=== PATIENT | female | born 1955 | race African-American/Black ===

== ENCOUNTER 2019-01-08 01:09 | Emergency (ER) | payer MEDICAID ==
[~2019-01-08] VITALS: Ht 157.5 cm; Wt 47.6 kg
--- NOTE | 2019-01-08 01:21 | NUR ---
BIBRA. C/O "HAVING SOB BECAUSE OF THE SMOKE. ALSO HAVING BLURRY VISION" AOX4. VSS AT THIS TIME.
[2019-01-08 02:21] LABS: BASOPHILS # (AUTO) 0.1 /CMM (0.0-0.2); EOSINOPHILS % (AUTO) 2.6 % (0.0-6.0); HEMATOCRIT 42 % (33-45); HEMOGLOBIN 13.5 g/dL (11.5-14.8); LYMPHOCYTES # (AUTO) 1.3 /CMM (0.8-4.8); LYMPHOCYTES % (AUTO) 35.2 % (20.0-44.0); MEAN CORPUSCULAR HGB CONC 33 g/dl (31.0-36.0); MEAN CORPUSCULAR VOLUME 95 fL (82-100); MONOCYTES # (AUTO) 0.3 /CMM (0.1-1.30); MONOCYTES % (AUTO) 7.6 % (2.0-12.0); NEUTROPHILS # (AUTO) 1.9 /CMM (1.8-8.9); NEUTROPHILS % (AUTO) 52.6 % (43.0-81.0); PLATELET COUNT (AUTO) 241 /CMM (150-450); RED BLOOD CELL COUNT(AUTO) 4.39 MIL/uL (4.0-5.2); WHITE BLOOD COUNT (AUTO) 3.7 K/uL (4.3-11.0)
[2019-01-08 02:27] LABS: APPEARANCE,URINE Clear (CLEAR); BILIRUBIN,URINE Negative (NEGATIVE); BLOOD, URINE Negative Ery/uL (NEGATIVE); COLOR,URINE Yellow (YELLOW); KETONES,URINE Trace (NEGATIVE); LEUKOCYTE ESTERASE ,URINE Small (NEGATIVE); NITRITE, URINE Negative (NEGATIVE); PROTEIN,URINE Negative (NEGATIVE); UGLUCOSE Negative (NEGATIVE); UROBILINOGEN,URINE 0.2 EU/dL (0.2)
[2019-01-08 02:31] LABS: POTASSIUM 4.1 mmol/L (3.5-5.1)
[2019-01-08 02:45] LABS: THYROID STIMULATING HORMONE 11.514 uIU/mL (0.358-3.74)
[2019-01-08 03:05] LABS: BACTERIA,URINE Few /HPF (None Seen); RBC,URINE 0-2 /HPF (0-2); SQUAMOUS EPITHELIAL CELL,UR Rare /HPF (None Seen)
--- NOTE | 2019-01-08 03:18 | NUR ---
PATIENT DISCHARGED. PT OK TO SLEEP IN BED UNTIL MORNING. NO COMPLAINTS AT THIS TIME. AOX4. AMBULATORY.
[2019-01-08 07:07] VITALS: BP 121/71
== END 2019-01-08 07:07 | disposition home or self-care (01) ==
LOC: ER 01:10
DX: E03.9 Hypothyroidism, unspecified (principal); E06.3 Autoimmune thyroiditis; M19.90 Unspecified osteoarthritis, unspecified site; Z88.6 Allergy status to analgesic agent; Z88.5 Allergy status to narcotic agent
CPT/HCPCS: 36415; 71045-TC; 80048-TC; 81000-TC; 84439-TC; 84443-TC; 84481; 85025-TC

== ENCOUNTER 2019-02-16 23:39 | Emergency (ER) | payer MEDICAID ==
[~2019-02-16] VITALS: Ht 157.5 cm; Wt 47.6 kg
--- NOTE | 2019-02-16 23:42 | NUR ---
PT BIB EMS C/O DIZZINESS. DX'D WITH PNA ON Z-PACK. PT AOX4. NAD NOTED. RESP EVEN AND UNLABORED. PT ON MONITOR IN BED 3. WILL CONTINUE TO MONITOR.
[2019-02-17] MEDS ORDERED: IV NS 0.9% 1,000 ML BAG IV ONE
--- NOTE | 2019-02-17 00:05 | NUR ---
BLOOD DRAWN AND GIVEN TO LAB
--- NOTE | 2019-02-17 00:09 | NUR ---
TECH AT BEDSIDE FOR EKG
[2019-02-17 00:12] LABS: BASOPHILS # (AUTO) 0.1 /CMM (0.0-0.2); BASOPHILS % (AUTO) 1.2 % (0.0-2.0); EOSINOPHILS % (AUTO) 1.2 % (0.0-6.0); HEMATOCRIT 44 % (33-45); HEMOGLOBIN 14.3 g/dL (11.5-14.8); LYMPHOCYTES # (AUTO) 1.5 /CMM (0.8-4.8); LYMPHOCYTES % (AUTO) 34.4 % (20.0-44.0); MEAN CORPUSCULAR HGB CONC 33 g/dl (31.0-36.0); MEAN CORPUSCULAR VOLUME 94 fL (82-100); MONOCYTES # (AUTO) 0.4 /CMM (0.1-1.30); NEUTROPHILS # (AUTO) 2.4 /CMM (1.8-8.9); NEUTROPHILS % (AUTO) 55.2 % (43.0-81.0); PLATELET COUNT (AUTO) 278 /CMM (150-450); RED BLOOD CELL COUNT(AUTO) 4.66 MIL/uL (4.0-5.2); WHITE BLOOD COUNT (AUTO) 4.4 K/uL (4.3-11.0)
--- NOTE | 2019-02-17 00:14 | NUR ---
RADIOLOGY AT BEDSIDE FOR XRAY
[2019-02-17 00:21] LABS: CALCIUM, SERUM 9.3 mg/dL (8.5-10.1); CARBON DIOXIDE 28 mmol/L (21-32); CHLORIDE 107 mmol/L (98-107); CREATININE 0.9 mg/dL (0.6-1.3); GLUCOSE 109 mg/dL (74-106); POTASSIUM 3.8 mmol/L (3.5-5.1); SODIUM SERUM 142 mmol/L (136-145); UREA NITROGEN, BLOOD 12 mg/dL (7-18)
[2019-02-17 00:35] LABS: ALANINE AMINOTRANSFERASE 23 U/L (12-78); ALBUMIN 3.5 g/dL (3.4-5.0); ALKALINE PHOSPHATASE 83 U/L (46-116); ASPARTATE AMINOTRANSFERASE 19 U/L (15-37); B-TYPE NATRIURETIC PEPTIDE 52 PG/ML (0-125); BILIRUBIN,DIRECT 0.1 mg/dL (0.0-0.2); BILIRUBIN,TOTAL 0.3 mg/dL (0.2-1.0); TOTAL PROTEIN, SERUM 7.1 g/dL (6.4-8.2)
[2019-02-17 02:09] VITALS: BP 137/87
--- NOTE | 2019-02-17 02:16 | NUR ---
Patient is resting comfortably in bed with eyes closed. Easily aroused. VSS
--- NOTE | 2019-02-17 02:43 | NUR ---
PT CLAMPED IV FLUIDS. PT WAS TOLD TO NOT CLAMP THE IV FLUIDS.
--- NOTE | 2019-02-17 03:03 | NUR ---
PT CLAMPED IV FLUIDS AGAIN. PT WAS TOLD TO NOT CLAMP THE IV FLUIDS.
--- NOTE | 2019-02-17 04:31 | NUR ---
PT WAS GIVEN DISCHARGE PAPERWORK AND REFUSES TO SIGN. PT WAS VERBALLY THREATENING WHEN I TRIED TO REMOVE THE IV ACCESS. CALLED SECURITY TO ESCORT PATIENT.
--- NOTE | 2019-02-17 05:38 | NUR ---
IV removed. Catheter intact and site benign. Pressure and 4x4 applied to site. No bleeding noted.Patient discharged to home in stable condition. Written and verbal after care instructions given. Patient verbalizes understanding of instruction.
== END 2019-02-17 05:40 | disposition home or self-care (01) ==
LOC: ER 23:46
DX: E86.0 Dehydration (principal); R42 Dizziness and giddiness; M19.90 Unspecified osteoarthritis, unspecified site; Z88.6 Allergy status to analgesic agent; Z88.5 Allergy status to narcotic agent
CPT/HCPCS: 36415; 71045; 80048; 80076; 83880; 84145; 84484; 85025; 87040 ×2; 93005; 96360; 99284; J7030

== ENCOUNTER 2019-04-11 12:29 | Emergency (ER) | payer OTHER, MEDICAID ==
[~2019-04-11] VITALS: Ht 157.5 cm; Wt 52.2 kg
--- NOTE | 2019-04-11 12:35 | NUR ---
Pt [id number], and lapd, in custody,for OTB c/o lower back pain, 8 ps ambulatory on scene, BS 136. Pt aaox4, vss, breathing even and unlabored on room air w/ nad noted. Pt connected to the monitor and pox. Officer Patience at bedside. ID # [id number]
[2019-04-11] MEDS ORDERED: IBUPROFEN 600 MG TABLET PO ONE ×2 (12:51→13:00)
--- NOTE | 2019-04-11 13:00 | NUR ---
PT ASKED TO TAKE MOTRIN AFTER LUNCH.
--- NOTE | 2019-04-11 15:19 | NUR ---
Patient discharged to pd in stable condition. Written and verbal after care instructions given. Patient verbalizes understanding of instruction.
[2019-04-11 15:20] VITALS: BP 119/84
== END 2019-04-11 15:20 ==
LOC: ER 12:31
DX: S30.0XXA Contusion of lower back and pelvis, initial encounter (principal); M19.90 Unspecified osteoarthritis, unspecified site; Z88.6 Allergy status to analgesic agent; Z88.5 Allergy status to narcotic agent; Y08.89XA Assault by other specified means, initial encounter; Y93.89 Activity, other specified; Y92.89 Other specified places as the place of occurrence of the external cause; Y99.8 Other external cause status
CPT/HCPCS: 72100-TC

== ENCOUNTER 2024-05-06 02:22 | Emergency (ER) | payer MEDICARE, OTHER ==
[~2024-05-06] VITALS: Ht 157.5 cm; Wt 50.8 kg
[2024-05-06 02:53] VITALS: TEMP 98.4
[2024-05-06] MEDS: IBUPROFEN 400 MG TABLET PO ONE (03:00)
[2024-05-06] MEDS ORDERED: IBUPROFEN 400 MG TABLET ONE (03:38)
[2024-05-06 06:35] VITALS: BP 144/89; O2SAT 97
== END 2024-05-06 06:35 | disposition home or self-care (01) ==
LOC: ER 02:34
DX: S39.012A Strain of muscle, fascia and tendon of lower back, initial encounter (principal); E06.3 Autoimmune thyroiditis; Z88.5 Allergy status to narcotic agent; Y08.89XA Assault by other specified means, initial encounter; Y93.89 Activity, other specified; Y92.098 Other place in other non-institutional residence as the place of occurrence of the external cause; Y99.8 Other external cause status
CPT/HCPCS: 72131-TC